=== PATIENT | male | born 1950 | race Caucasian/White ===

== ENCOUNTER 2023-06-02 08:13 | Outpatient (RCR) | payer OTHER, SELFPAY | END 2023-06-02 23:59 | disposition home or self-care (01) | LOC: CRHB 08:13 | PROVIDERS: ATTENDING PHYSICIAN Internal Medicine Cardiovascular Disease | DX: I25.10 Atherosclerotic heart disease of native coronary artery without angina pectoris (principal); Z95.5 Presence of coronary angioplasty implant and graft | CPT/HCPCS: G0422; G0423 ==

== ENCOUNTER 2023-06-23 09:35 | Outpatient (RCR) | payer OTHER, SELFPAY | END 2023-06-23 23:59 | disposition home or self-care (01) | LOC: CRHB 09:35 | PROVIDERS: ATTENDING PHYSICIAN Internal Medicine Cardiovascular Disease | DX: I25.10 Atherosclerotic heart disease of native coronary artery without angina pectoris (principal); Z95.5 Presence of coronary angioplasty implant and graft | CPT/HCPCS: 93797; 93798; G0422; G0423 ==

== ENCOUNTER 2023-07-14 11:30 | Outpatient (RCR) | payer OTHER, SELFPAY | END 2023-07-14 23:59 | disposition home or self-care (01) | LOC: CRHB 11:30 | PROVIDERS: Internal Medicine Cardiovascular Disease; ATTENDING PHYSICIAN Internal Medicine Cardiovascular Disease | DX: Z95.5 Presence of coronary angioplasty implant and graft (principal); I25.10 Atherosclerotic heart disease of native coronary artery without angina pectoris | CPT/HCPCS: G0422; G0423 ==

== ENCOUNTER → 2023-09-29 07:50 | Outpatient (REF) | payer OTHER, SELFPAY | LOC: RCS 07:50 | PROVIDERS: ATTENDING PHYSICIAN Internal Medicine; FAMILY PHYSICIAN Internal Medicine | DX: I25.118 Atherosclerotic heart disease of native coronary artery with other forms of angina pectoris (principal); E78.2 Mixed hyperlipidemia; I10 Essential (primary) hypertension | CPT/HCPCS: 93306 ==

== ENCOUNTER → 2023-12-08 06:35 | Outpatient (REF) | payer OTHER, SELFPAY | LOC: RAD 06:35 | PROVIDERS: ATTENDING PHYSICIAN Internal Medicine Critical Care Medicine; FAMILY PHYSICIAN Internal Medicine | DX: Z87.891 Personal history of nicotine dependence (principal) | CPT/HCPCS: 71271 ==

== ENCOUNTER 2024-06-11 13:31 | Emergency (ER) | payer OTHER, SELFPAY ==
[2024-06-11 13:41] VITALS: BP 108/73
[2024-06-11 14:14] LABS: INR 0.94; PT 12.9 Sec (11.4-14.6)
[2024-06-11 14:16] LABS: ALT (SGPT) 33 U/L (0-50); AST (SGOT) 36 U/L (17-59); Albumin 4.8 g/dl (3.5-5.0); Alkaline Phosphatase 73 U/L (38-126); Blood Urea Nitrogen 22 mg/dl (9-20); Calcium 9.5 mg/dl (8.4-10.2); Carbon Dioxide 23 mmol/L (22-30); Chloride 100 mmol/L (98-107); Glucose 129 mg/dl (70-99); Potassium 3.8 mmol/L (3.5-5.1); Sodium 136 mmol/L (135-145); Total Bilirubin 0.9 mg/dl (0.2-1.3); eGFR 58.37
[2024-06-11 14:27] LABS: Hematocrit 41.9 % (39.0-52.0); Hemoglobin 14.9 g/dL (13.0-18.0); Mean Corp Hgb Conc. 35.6 g/dL (33.0-37.0); Mean Corpuscular Volume 92.7 fL (80.0-94.0); Mean Platelet Volume 8.8 fL (7.4-10.4); Platelet Count 220 10^3/uL (130-400); Red Blood Cell Count 4.52 10^6/uL (4.70-6.10); Red Cell Dist. Width 12.3 % (11.5-14.5); Troponin I < 0.012 ng/ml
[2024-06-11 14:35] LABS: % Basophils 0.4 % (0-2); % Eosinophils 0.6 % (0-6); % Immature Granulocytes 0.2 % (0-0.5); % Lymphocytes 51.2 % (20.5-51.1); % Monocytes 5.2 % (1.7-9.3); % Neutrophils 42.4 % (42.2-75.2); Absolute Eosinophils 0.1 10^3/uL (0-0.7); Absolute Lymphocytes 5.1 10^3/uL (1.2-3.4); Absolute Monocytes 0.5 10^3/uL (0.1-0.6); Absolute Neutrophils 4.3 10^3/uL (1.4-6.5); Nucleated Red Blood Cells % 0.2 % (-)
[2024-06-11 15:54] VITALS: BMI 26.3
[2024-06-11 15:56] VITALS: BP 138/89
[2024-06-11 16:00] VITALS: BP 125/85
--- NOTE | 2024-06-11 16:09 | ED.GENMED ---
History of Present Illness
General
Chief Complaint: Chest Pain
Source: patient
Exam Limitations: none
Time Seen by Provider: 06/11/24 15:42
Nursing documentation reviewed up to this point in time: agreed with
History of Present Illness
History of Present Illness:
Patient is a 73-year-old male with past medical history of CAD, angioplasty presents to the ER for evaluation of chest pain. Patient reports around 11:30 AM he was carrying wood and then felt anterior chest pain and became a little diaphoretic.
He does report that this felt similar to when he had a stent in 2022.
he does report that he took a nitroglycerin( which did not help the pain) but then he got lightheaded after he took the nitroglycerin went down to his knees and believes he may have passed out for a minute. He presented to the ER awake alert no
acute distress denying chest pain now. He denies any dizziness. He denies any shortness of breath. He is asymptomatic. He did take his regular aspirin today.
Past History
Past History
ED Past Medical History: CAD, COPD, GERD, HTN and Hypercholesterolemia
ED Past Surgical History: Cardiac
Social History
Tobacco: Former smoker
Alcohol: Former
Drug: None
Personal: Single
Living: with family
Employment: Employed
Phy Exam
General Physical Exam
General Presentation: no apparent distress
General Skin: warm and dry
General Habitus: normal
General Mental: alert
Scores
Heart Score for Chest Pain Patients
STEMI patient?: Not applicable
Course
Orders/Labs/Results
Orders:
Orders
06/11/24 13:32
Electrocardiogram (*1) Urgent
Reason for Study: Chest Pain
EKG- Treatment ONCE
06/11/24 13:45
CR Chest - 2 Views Urgent
Comment:
Reason For Exam: chest pain
06/11/24 13:55
Complete Blood Count/With Diff Urgent
Comprehensive Metabolic Panel Urgent
Prothrombin Time Urgent
Troponin I Urgent
06/11/24 16:46
Aspirin Chewable [Low Strength Aspirin] 243 mg PO NOW STA
06/11/24 16:49
EKG- Treatment ONCE
06/11/24 17:45
Troponin I Urgent
06/11/24 17:55
Electrocardiogram (*1) Stat
Reason for Study: Other
Other Reason for Exam: chest pain
Abnormal Lab Results
06/11/24
13:55
RBC 4.52 L 10^6/uL
(4.70-6.10)
MCH 33.0 H pg
(27.0-31.0)
Absolute Lymphs (auto) 5.1 H 10^3/uL
(1.2-3.4)
Lymphocytes % 51.2 H %
(20.5-51.1)
BUN 22 H mg/dl
(9-20)
Glucose 129 H mg/dl
(70-99)
06/11/24 13:55
06/11/24 13:55
Vital Signs
Initial and Last Documented VS:
Initial Vital Signs
Temp Pulse Resp BP Pulse Ox
97.7 F 85 17 108/73 99
06/11/24 13:41 06/11/24 13:41 06/11/24 13:41 06/11/24 13:41 06/11/24 13:41
Last Documented Vital Signs
Temp Pulse Resp BP Pulse Ox
97.7 F 93 22 140/84 99
06/11/24 13:41 06/11/24 17:45 06/11/24 17:45 06/11/24 17:45 06/11/24 17:45
MDM/Problems Addressed
Differential Diagnosis Includes:
not limited to: Unstable angina
MDM/Problems Addressed:
As documented patient is a 73-year-old male with CAD history stent presented with chest pain with exertion. He does describe this as feeling similar to when he needed stent in the past. He also reported he took nitroglycerin and believes he has
syncopal episode. He presents here awake alert no acute distress asymptomatic no chest pain during my exam.
Patient was given additional aspirin though he did take his regular aspirin at home. No acute findings on EKG. Case discussed with cardiology, Dr. Miranda who does recommend keeping patient for 4-hour repeat troponin.
Patient was For 4-hour troponin and did not develop any symptoms throughout the ED visit. His second repeat troponin is negative his repeat EKG is unremarkable.
Patient no acute distress stable for discharge home discussed with patient no exertional activities will DC with cardiac chest pain hotline
Chronic conditions affecting care:
CAD hypertension, hypertension
*Radiology
Radiology exam reviewed: radiology read reviewed
*Pulse Oximetry
Patient hypoxic: no
*EKG
Interpreted by ED Provider?: Yes
Interpretation: normal
Comparison EKG: no changes
Heart Rate: 84
Rate: normal
Rhythm: sinus
Ischemia: no ischemia
*Critical Care Note
Total Time (30-74mins, 75-104mins- exclusive of procedures): Not Applicable
Data Reviewed
Review of Other/Old Records Reveals: Other (Echo reviewed from September 2023 shows normal diastolic function normal biventricular size and systolic no valve disease mildly dilated aortic root)
ED Attending Note
-
Portions of this chart may have been created with voice recognition software.� Occasional wrong word or��sound alike� substitutions may have occurred due to the inherent limitations of voice recognition software.
Discharge Plan
Departure
Patient Disposition: Home (Routine Discharge)
Date of Disposition: 06/11/24
Time of Disposition: 19:07
Patient with high blood pressure during this ER visit?: Yes
Condition: Fair
Covid-19: Not Applicable
Discharge Problem:
Chest pain
Instructions: Chest Pain CBC Follow Up, BLOOD PRESSURE
Prescriptions:
No Action
diphenhydramine HCl [Banophen] 50 MG capsule
50 mg PO HS
aspirin 81 MG tablet,delayed release (DR/EC)
81 mg PO HS
pantoprazole 40 MG tablet,delayed release (DR/EC)
40 mg PO DAILY
nitroglycerin 0.4 MG tablet, sublingual
0.4 mg sublingual [id number] PRN (Reason: chest pains )
montelukast 10 MG tablet
10 mg PO HS
alfuzosin [Uroxatral] 10 MG tablet extended release 24 hr
10 mg PO QPM
Patient Comments:
atorvastatin 40 MG tablet
40 mg PO HS
sulfasalazine 500 MG tablet
500 mg PO BID
metoprolol succinate 50 MG tablet extended release 24 hr
50 mg PO DAILY
amlodipine 5 MG tablet
5 mg PO DAILY
acetaminophen [Tylenol Arthritis Pain] 650 MG tablet extended release
1,300 mg PO HS
Simponi ARIA 50 MG/4 ML solution
50 mg IV Q8W
valacyclovir [Valtrex] 1 gram Tablet
1,000 mg PO DAILYPRN PRN (Reason: @ outbreat &12 hrs later)
valsartan-hydrochlorothiazide [Diovan HCT] 160-25 mg Tablet
1 tab PO DAILY
therapeutic multivitamin Tablet
1 tab PO QPM
calcium carbonate-vitamin D3 600 mg-5 mcg (200 unit) Tablet
1 tab PO QPM
ascorbic acid (vitamin C) [Vitamin C] 500 mg Tablet
1,000 mg PO QPM
zinc gluconate 50 mg Tablet
50 mg PO QPM
bromelains 375 mg Capsule
165 mg PO QPM
cholecalciferol (vitamin D3) [Vitamin D3] 25 mcg (1,000 unit) Capsule
25 mcg PO QPM
Glucosamine Chondroitin 550-30-1 mg Capsule
1 cap PO QPM
quercetin 500 mg Capsule
800 mg PO QPM
coenzyme Q10 [CoQ-10] 100 mg Capsule
200 mg PO DAILY
clopidogrel [clopidogrel] 75 mg tablet
75 mg PO DAILY Qty: 90 10RF
Referrals:
Dharmesh Ramirez I., DO [Family Provider] -
Activity Restrictions/Additional Instructions:
As discussed you were placed on the chest pain hotline you should receive a phone call from the office tomorrow; if you do not please give them a call to schedule an appointment as soon as possible. Continue to take your medicines as previously
prescribed.
No exertional activities
Return if any worsening of symptoms of chest pain shortness of breath sweating nausea vomiting further concerns.
Interventions
Interventions:
*Risk Screen - Suicide Last Done: 06/11/24 13:44
*General Assessment Last Done: 06/11/24 13:44
*Neglect/Abuse Screening Last Done: 06/11/24 13:44
ED- Fall Risk Assessment Last Done: 06/11/24 16:29
*ED COVID-19 Vaccine History Last Done: 06/11/24 13:44
*Nursing Disposition Last Done: 06/11/24 19:24
ED- Cardiac Assessment Last Done: 06/11/24 15:54
Discharge Date and Time
Discharge Date/Time: 06/11/24 19:28
Print Language: MONEGASQUE
[2024-06-11] MEDS: LOW STRENGTH ASPIRIN 243 MG PO (16:55)
[2024-06-11 17:45] VITALS: BP 140/84
[2024-06-11 18:16] LABS: Troponin I < 0.012 ng/ml
== END 2024-06-11 19:28 | disposition home or self-care (01) ==
LOC: EMR 13:31
PROVIDERS: Emergency Medicine; Nurse Practitioner; EMERGENCY PHYSICIAN Emergency Medicine; FAMILY PHYSICIAN Internal Medicine
DX: R07.89 Other chest pain (principal); I25.10 Atherosclerotic heart disease of native coronary artery without angina pectoris; J44.9 Chronic obstructive pulmonary disease, unspecified; K21.9 Gastro-esophageal reflux disease without esophagitis; I10 Essential (primary) hypertension; E78.00 Pure hypercholesterolemia, unspecified; Z87.891 Personal history of nicotine dependence
CPT/HCPCS: 99283; 71046; 80053; 84484; 85025; 85610; 93005

== ENCOUNTER 2024-06-19 07:21 | Day surgery (SDC) | payer OTHER, SELFPAY ==
[2024-06-19] VITALS (12 sets, daily range): BP systolic 121–142; BP diastolic 70–86
--- NOTE | 2024-06-19 10:43 | ITS.CL.CATH ---
Technical Research Scientist - Catheterization
Cardiac Catheterization
Procedure Report:
CARDIAC CATHETERIZATION REPORT
Date of Procedure: 06/19/2024
Referring: Joel Chambers M.D., Ph.D.
INDICATION: Known coronary artery disease, suspicious chest pain.
PROCEDURE:
1. Left heart catheterization.
2. Coronary angiography.
A total of 25 minutes of procedural/moderate sedation was utilized. An independent hospitalist medical director was present to assist with and help manage the patient's level of consciousness and physiologic status.
ACCESS:
1. 6 [place] right radial artery using a modified Seldinger technique.
CATHETERS:
1. 5 [place] JR4.
2. 5 [place] JL 3.5.
HEMODYNAMIC DATA
Weight (kg): 89.4
AO (s/d/x, mmHg): 116/74/92
LV (s/x mmHg): 121/9
LEFT VENTRICULOGRAPHY: Not performed.
CORONARY ANGIOGRAPHY
Dominance: Right.
Left Main: Normal size, trifurcating vessel. There is no coronary artery disease.
LAD: Normal size vessel giving rise to 2 diagonals which originate from a common ostium. There is an aneurysmal portion of the LAD immediately proximal to the origin of the diagonals.
Ramus: Small size, vestigial vessel. There is no meaningful coronary artery disease.
Circumflex: Normal size, nondominant vessel giving rise to 2 obtuse marginals before terminating as a left posterolateral branch. There is a patent stent in the proximal margin of OM1. OM 2 is a small, 1.5 mm vessel. There is a patent stent in
the distal circumflex, immediately proximal to the vessel turn into the posterolateral branch.
RCA: Normal size, dominant vessel. A patent stent is observed in the proximal margin of the RPDA.
INTERVENTION(S)
None.
Closure Device: Vascular band.
Radiation (mGy): 246.5
DAP (cm2.Gy): 19.5886
Fluoroscopy time (minutes): 1.7
CONCLUSIONS
1. Right dominant circulation with patent stents in the RPDA, the proximal margin of OM1 and the distal margin of the circumflex before the turn into the left posterolateral branch.
2. Normal filling pressures (LVEDP = 9 mmHg and 89.4 kg).
RECOMMENDATIONS:
1. Expectant management after cardiac catheterization via right radial approach.
2. Limited weight bearing on the right wrist for one week.
3. OMT/GDMT as hemodynamics will tolerate.
4. Increase pantoprazole to 40 mg twice daily.
5. Stable for outpatient follow-up.
Copy to: Joel Chambers M.D., Ph.D., Dharmesh Ramirez, D.O.
Jesse Aguirre DO, FACC, FACP
== END 2024-06-19 13:20 | disposition home or self-care (01) ==
LOC: CATH 07:21
PROVIDERS: ATTENDING PHYSICIAN Internal Medicine Cardiovascular Disease; FAMILY PHYSICIAN Internal Medicine; OTHER PHYSICIAN Internal Medicine
DX: I25.10 Atherosclerotic heart disease of native coronary artery without angina pectoris (principal); R07.9 Chest pain, unspecified; Z95.5 Presence of coronary angioplasty implant and graft; I10 Essential (primary) hypertension; E78.00 Pure hypercholesterolemia, unspecified; K21.9 Gastro-esophageal reflux disease without esophagitis; J44.9 Chronic obstructive pulmonary disease, unspecified; Z87.891 Personal history of nicotine dependence; Z79.82 Long term (current) use of aspirin
CPT/HCPCS: 99152; 99153; C1894; 93458; Q9967

== ENCOUNTER → 2024-12-11 07:24 | Outpatient (REF) | payer OTHER, SELFPAY | LOC: RAD 07:24 | PROVIDERS: ATTENDING PHYSICIAN Internal Medicine Critical Care Medicine; FAMILY PHYSICIAN Internal Medicine | DX: Z87.891 Personal history of nicotine dependence (principal); R91.1 Solitary pulmonary nodule | CPT/HCPCS: 71271 ==